=== PATIENT | male | born 1985 | race Caucasian/White ===

== ENCOUNTER 2024-09-07 06:44 | Day surgery (SDC) | payer OTHER, SELFPAY ==
[2024-09-07] VITALS (11 sets, daily range): BP systolic 117–142; BP diastolic 71–84; BMI 32.2
[2024-09-07] MEDS: TYLENOL 1000 MG PO (10:28)
== END 2024-09-07 13:54 | disposition home or self-care (01) ==
LOC: SDS 06:44
PROVIDERS: ATTENDING PHYSICIAN Specialist
DX: Z30.2 Encounter for sterilization (principal)
CPT/HCPCS: 55250; 88302